=== PATIENT | female | born 1960 | race Two or more races ===

== ENCOUNTER 2025-03-28 00:02 | Emergency (ER) | payer SELFPAY ==
[2025-03-28] MEDS ORDERED: Sodium Chloride 0.9% 10 ML Syringe FLUSH PRN (00:31)
[2025-03-28] MEDS: LORazepam 2 MG/ML SDV IVPUSH ONE ×3 (00:39→03:40)
[2025-03-28 00:43] LABS: BASOPHILS ABSOLUTE AUTO 0.0 K/mm3 (0.0-0.2); BASOPHILS PERCENT AUTO 0.2 % (0.0-1.0); EOSINOPHILS ABSOLUTE AUTO 0.1 K/mm3 (0.0-0.4); EOSINOPHILS PERCENT AUTO 1.1 % (0.0-6.0); IMMATURE GRAN ABSOLUTE AUTO 0.05 K/mm3 (0.00-0.05); IMMATURE GRAN PERCENT AUTO 0.6 % (0.0-0.4); LYMPHOCYTES ABSOLUTE AUTO 0.8 K/mm3 (1.0-4.8); LYMPHOCYTES PERCENT AUTO 9.7 % (24.0-44.0); MEAN PLATELET VOLUME 11.4 fl (9.4-12.3); MONOCYTES ABSOLUTE AUTO 0.9 K/mm3 (0.0-0.8); MONOCYTES PERCENT AUTO 10.6 % (0.0-8.0); NEUTROPHILS ABSOLUTE AUTO 6.7 K/mm3 (1.8-7.7); NEUTROPHILS PERCENT AUTO 77.8 % (41.0-71.0); NRBC ABSOLUTE 0.00 (0.00-0.02); NRBC PERCENT 0.0 % (0.0-0.2); PLATELET COUNT,PLT 82 K/mm3 (150-400); RED BLOOD CELL COUNT 3.42 M/mm3 (4.10-5.30); WHITE BLOOD CELL COUNT,WBC 8.57 K/mm3 (3.9-11.3)
[2025-03-28 00:54] LABS: INR 1.33
[2025-03-28 00:56] LABS: PTT,PARTIAL THROMBOPLSTIN TIME 28.7 SECONDS (21.7-31.4)
[2025-03-28 01:10] LABS: PH,VENOUS 7.57 (7.30-7.40)
[2025-03-28 01:10] LABS: LACTIC ACID 3.7 mmol/L (0.4-2.0)
[2025-03-28 01:11] LABS: BASE EXCESS VENOUS 10.3 (-4.0-2.0); BICARBONATE,VENOUS 33.0 meq/L (22-26); O2 SATURATION VENOUS 75.8; PCO2 VENOUS 38.0 mmHg (41-51); PO2 VENOUS 49.0 mmHG (40-80)
[2025-03-28 01:12] LABS: A/G RATIO 0.9 (1-2); ALANINE AMINOTRANSFERASE,ALT 52 U/L (14-59); BILIRUBIN TOTAL 2.6 mg/dL (0.2-1.0); BLOOD UREA NITROGEN,BUN 5 mg/dL (7-18); CARBON DIOXIDE,CO2 28 mEq/L (21-32); CHLORIDE,CL 81 mEq/L (98-107); CREATININE 0.5 mg/dL (0.55-1.02); ESTIMATED GFR 103 mL/min (>60); ETHANOL BLOOD MEDICAL 0.01 gm% (0.00); GLUCOSE RANDOM 88 mg/dL (70-99); PROTEIN TOTAL,TP 6.6 g/dl (6.4-8.2); SODIUM,NA 121 mEq/L (136-145); TSH 1.136 uIU/mL (0.358-3.74)
[2025-03-28 01:21] LABS: TROPONIN I HIGH SENSITIVITY 1729 pg/mL (<=51)
[2025-03-28 01:22] LABS: POTASSIUM,K 3.5 mEq/L (3.5-5.1)
[2025-03-28 01:23] LABS: ASPARTATE AMNIOTRANSFERASE,AST 184 U/L (15-37)
[2025-03-28 01:47] LABS: CREATINE KINASE,CK 2116 U/L (26-192)
[2025-03-28 02:20] LABS: CORONAVIRUS COVID-19 NAA NEGATIVE (NEGATIVE); INFLUENZA A NAA NEGATIVE (NEGATIVE); RESPIRATORY SYNCYTIAL VIR NAA NEGATIVE (NEGATIVE)
[2025-03-28] MEDS: Magnesium Sulf/Wat 4 GM/50 mL 4 GM in Premix Bag 1 BAG IV ONE (02:47)
[2025-03-28 03:22] LABS: APPEARANCE,URINE CLOUDY (Clear); GLUCOSE,URINE NEGATIVE (Negative); OCCULT BLOOD,URINE 1+ (Negative)
[2025-03-28 03:26] LABS: BUPRENORPHINE SCREEN,URINE NEGATIVE (CUTOFF=10); METHADONE SCREEN, URINE NEGATIVE (CUTOFF=200); METHAMPHETAMINES SCREEN, URINE NEGATIVE (CUTOFF=500); OXYCODONE SCREEN,URINE NEGATIVE (CUT0FF=100); THC SCREEN,URINE 20 NG/ML PRESUMPTIVE POSITIVE (CUTOFF=50)
[2025-03-28 03:28] LABS: AMPHETAMINES SCREEN, URINE NEGATIVE (CUTOFF=500)
[2025-03-28 03:29] LABS: SQUAMOUS EPITHELIAL CELLS,UR 0-5 /hpf (0-5)
[2025-03-28 03:45] LABS: SODIUM,NA 126 mEq/L (136-145)
[2025-03-28 03:51] LABS: TROPONIN I HIGH SENSITIVITY 2013 pg/mL (<=51)
== END 2025-03-28 04:10 ==
LOC: JD.ED 00:02
DX: S06.5X0A Traumatic subdural hemorrhage without loss of consciousness, initial encounter (principal); M62.82 Rhabdomyolysis; F10.131 Alcohol abuse with withdrawal delirium; R79.89 Other specified abnormal findings of blood chemistry; R25.1 Tremor, unspecified; E83.42 Hypomagnesemia; E87.1 Hypo-osmolality and hyponatremia; X50.1XXA Overexertion from prolonged static or awkward postures, initial encounter
CPT/HCPCS: 36415; 70450; 71045; 72125; 80053; 80143; 80179; 80306; 80307; 81001; 82140; 82550; 82803; 83605; 83690; 83735; 83880; 84295; 84443; 84484; 85025; 85610; 85730; 87040; 87086; 87088; 87186; 87637; 93005; 96361; 96365; 96375; 96376; 99285; J2060; J3475; J7030